=== PATIENT | male | born 1950 | race Caucasian/White ===

== ENCOUNTER 2018-07-22 20:52 | Inpatient (IN) | payer BC, MEDICARE ==
[~2018-07-22 20:52] MED LIST: ISOVUE-370 76%-LOCM 1 ML ONE
--- NOTE | 2018-07-22 21:12 | RAD ---
CHEST ONE VIEW: 07/22/18 HISTORY: Hypertension, altered mental status. COMPARISON: None. FINDINGS: Lungs are hypoinflated with vascular crowding. The cardiac silhouette and mediastinal contours appear within normal limits. No acute osseous abnormality. IMPRESSION: No acute intrathoracic abnormality. POS: [facility]
[2018-07-22 21:33] LABS: Hemoglobin 14.9 g/dL (14.0-18.0); Mean Corpuscular HGB CONC 33.4 g/dL (32.0-36.0); Mean Corpuscular Hemoglobin 32.3 pg (27.0-31.0); Mean Corpuscular Volume 96.7 fL (78.0-98.0); Platelet Count 193 thou/uL (130-400); RBC Distribution Width 12.1 % (11.5-14.5); Red Blood Cell (RBC) Count 4.62 mill/uL (4.70-6.10); White Blood Cell (WBC) Count 16.1 thou/uL (4.8-10.8)
[2018-07-22 21:39] LABS: Bilirubin Negative (Negative); Blood, Urine Trace (Negative); Clarity CLEAR (Clear); Glucose, Urine (Dipstick) Negative (Negative); Leukocyte Negative (Negative); Nitrite Negative (Negative); Protein, Urine (Dipstick) 30 mg/dL (Neg-Trace); Specific Gravity, Urine 1.019 (1.002-1.036)
[2018-07-22 21:40] LABS: Bacteria/HPF None Seen HPF (None Seen); Hyaline Casts/LPF 4-6 HYALINE CAST LPF (0-3 Hyaline); Pathc Cast-AUWi Flag 0.14 (0-2.49); Squamous Epithelial 0-3 HPF (0-3); WBC/HPF 0-3 HPF (0-3)
[2018-07-22 21:46] LABS: Band 5 % (5-11); Lymphocytes 2 % (21-51); MDiff Complete? YES; Neutrophil 93 % (42-75); Platelet Morphology Comment Appears Adequate; RBC Morphology Normal
--- NOTE | 2018-07-22 21:48 | CT ---
CT BRAIN WITHOUT CONTRAST 07/22/18 HISTORY: Altered mental status. COMPARISON: None. FINDINGS: There is extensive subarachnoid hemorrhage throughout the basilar cisterns centered around what appea rs to be a mass along the anterior communicating artery likely an aneurysm. There is intraventricula r hemorrhage, large volume, within the atria of the lateral ventricles as well as the foramen of Monr o. There is also some intraventricular hemorrhage of the fourth ventricle and third ventricle. Subara chnoid hemorrhage is seen throughout the basilar cisterns and surrounds both convexities. Calvarium is intact. IMPRESSION: 1. 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 2. Subtle hypodensity inferior left frontal lobe likely a EMERALD infarction. Code CR - Dr. Junior at 9:33 p.m. POS: [facility]
[2018-07-22 21:51] LABS: ALT (SGPT) 18 U/L (8-55); AST (SGOT) 23 U/L (5-34); Albumin 4.4 g/dL (3.4-4.8); Alkaline Phosphatase 72 U/L (40-150); Anion Gap 17 mmol/L (10-20); BUN (Urea Nitrogen) 14 mg/dL (8.4-25.7); Bilirubin, Total 0.9 mg/dL (0.2-1.2); CK (CPK) 200 U/L (30-200); Calc. Creatinine Clearance 0 mL/min (70-130); Calcium 9.7 mg/dL (7.8-10.44); Carbon Dioxide 22 mmol/L (23-31); Chloride 102 mmol/L (98-107); Estimated GFR-MDRD Greater than 90; Glucose 144 mg/dL (80-115); Potassium 3.9 mmol/L (3.5-5.1); Protein, Total 7.4 g/dL (5.8-8.1); Sodium 137 mmol/L (136-145)
[2018-07-22] MEDS ORDERED: niCARdipine 20MG In NaCl 20 MG/200 ML BAG ONE (22:03)
[2018-07-22] MEDS ORDERED: Rocuronium Bromide 10 MG/ML (10ML VIAL) ONE (22:12)
[2018-07-22] MEDS ORDERED: Ondansetron PF 4 MG/2 ML Vial IVP PRN (22:20)
--- NOTE | 2018-07-22 22:25 | CT ---
CT ANGIOGRAM OF THE HEAD CT ANGIOGRAM OF THE NECK 07/22/18 HISTORY: Ruptured intracranial aneurysm. COMPARISON: None. CORRELATION: Noncontrast head CT 07/22/18. TECHNIQUE: CT angiogram of the head and neck are performed in the axial plane. Three dimensional reformatted zuly ges are submitted for interpretation. FINDINGS: There is diffuse subarachnoid blood on the postcontrast head CT. Cortical tello-white matter different iation appears to be preserved. There is intraventricular hemorrhage. There is dilatation of the occi pital horn of both lateral ventricles, unchanged. There is also stable dilatation of both temporal ho rns. Bilateral orbits are unremarkable. Aerodigestive tract is patent. No mucosal abnormality. No obvious masses in the oral cavity. Limited evaluation due to dental amalgam artifact. Midline fatty raphae of the tongue is preserved. Symmetric attenuation of the parotid and submandibular glands. Symmetric attenuation of the sternocle idomastoid muscles. Unremarkable thyroid gland. No evidence of lymphadenopathy by size criteria. Cervical spine vertebral body height is maintained. There is no fracture. No high grade central canal stenosis. Varying foraminal narrowing due to degenerative change. Evaluation is limited by technique . Upper mediastinum and lung apices are unremarkable. CT ANGIOGRAM: Visualized aortic arch has appropriate enhancement and luminal diameter. RIGHT CAROTID: The right carotid origin, common carotid artery, carotid bifurcation, and internal carotid artery hav e appropriate enhancement and luminal diameter. No significant stenosis based upon NASCET criteria. LEFT CAROTID: The left carotid origin, common carotid artery, carotid bifurcation, and internal carotid artery have appropriate enhancement and luminal diameter. No significant stenosis based upon NASCET criteria. Bilateral cervical vertebral arteries appear to be patent. Right vertebral artery is dominant. Bilate ral subclavian arteries are unremarkable. CT ANGIOGRAM OF THE HEAD: Distal cervical and intracranial internal carotid arteries have appropriate enhancement and luminal d iameter. There is atherosclerosis in both cavernous and paraclinoid segments. ANTERIOR CIRCULATION: Symmetric enhancement and luminal diameter of the A1 and M1 segments. Proximal MCA branches and A2 se gments are unremarkable. There is a small focus of enhancement in the expected region of the anterior communicating artery measuring 1.6 x 2.4 cm. This lesion has a cephalad orientation just to the left of midline. A small aneurysm is suspected. Additional aneurysms in the anterior circulation are not definitively appreciated. Evaluation is limited by extensive subarachnoid hemorrhage. Posterior circulation demonstrates patent intracranial vertebral arteries. Limited evaluation of both PICA artery origins. There is mild narrowing of the proximal basilar artery. Remainder of the basila r artery is unremarkable. The right P1 segment is patent. The left C[employer] COUNSELLOR has a origin. IMPRESSION: 1. Small aneurysm at the level of the anterior communicating artery is suspected. 2. Diffuse subarachnoid and interventricular blood. 3. No evidence of significant stenosis based upon NASCET criteria. 4. Conventional angiography may be beneficial. Results of the study discussed with Nena Heredia NP, 02/19/19 at 10:03 p.m. Code CR POS: [facility]
[2018-07-22] MEDS ORDERED: Morphine 4 MG/ML VIAL SLOW IVP PRN (22:26)
[2018-07-22] MEDS ORDERED: Acetaminophen 1,000 MG in Premix Bag 1 BAG IVPB PRN (22:26)
[2018-07-22] MEDS ORDERED: Ventilator Sedation Protocol 1 EACH FS SCH (22:30)
[2018-07-22] MEDS ORDERED: Propofol 1,000 MG/100 ML VIAL IV ONE (22:30)
[2018-07-22] MEDS ORDERED: Aminocaproic Acid 5 GM in Sodium Chloride 0.9% 250 ML 250 ML IV SCH (22:30)
[2018-07-22] MEDS ORDERED: Lorazepam 2 MG/ML VIAL SLOW IVP PRN (22:43)
[2018-07-22] MEDS ORDERED: Morphine 2 MG/ML SYRINGE SLOW IVP PRN (22:43)
[2018-07-22] MEDS ORDERED: Propofol BOLUS 1,000 MG/100 ML VIAL IV PRN (22:43)
[2018-07-22] MEDS ORDERED: Fentanyl BOLUS 250 ML IVPB PRN (22:43)
[2018-07-22] MEDS ORDERED: DISCONTINUE PREVIOUS NARCOTIC PAIN MEDICATIONS AND BENZODIAZEPINES FS SCH (22:43)
--- NOTE | 2018-07-22 22:46 | RAD ---
CHEST ONE VIEW: 07/22/18 HISTORY: Intubation. COMPARISON: Radiograph same day. FINDINGS: Endotracheal tube tip is in good position to the level of the clavicles. Enteric tube tip is in the g astric body. Atelectatic changes. IMPRESSION: Satisfactory appearance of the endotracheal and enteric tubes. POS: [facility]
[2018-07-22] MEDS ORDERED: Fentanyl 100 MCG/2 ML VIAL ONE (23:02)
[2018-07-22 23:17] LABS: PTT 31.3 SEC (22.9-36.1); Prothrombin Time 13.7 SEC (12.0-14.7)
[2018-07-22 23:18] LABS: Actual Bicarbonate (HCO3a) 19.9 mEq/L (22-28); Analyzer IN Cardio ER; Base Excess (BEa) -2.2 mEq/L (-2.0 to +3.0); CO2 Tension 27.5 mmHg (35.0-45.0); Calcium, Ionized 1.14 mmol/L (1.12-1.30); Carboxyhemoglobin (COHb) 0.4 gm% (0.0-3.0); Hemoglobin (Hb) 14.2 g/dL (14.0-18.0); O2 Tension (PaO2) 290.8 mmHg (> 80.0); Potassium - ABG Lab 3.15 mmol/L (3.70-5.30); pH, Arterial 7.48 (7.35-7.45)
[2018-07-22] MEDS ORDERED: CEFAZOLIN 1 GM VIAL ONE (23:20)
[2018-07-22 23:21] LABS: ALV-art Gradient 387.825 (0-20); Puncture Site LBA
--- NOTE | 2018-07-23 00:15 | OP ---
DATE OF PROCEDURE: 07/22/2018 PREPROCEDURE DIAGNOSIS: Subarachnoid hemorrhage, hydrocephalus. PROCEDURE PERFORMED: Right external ventricular drain placement with solo hole. PROCEDURE IN DETAIL: Mackenzie's point was identified in the right frontal scalp. This was marked, prepped with ChloraPrep, and draped in sterile fashion. At this point, a 15 blade knife was used to incise the scalp down to the periosteum, making a roughly 1 cm incision. A cranial twist drill was then used to create a solo hole at Mackenzie's point in the right frontal bone. The dural wound was cleared using blunt dissection and then an interventricular catheter was placed at the depth of 6 cm. There was serosanguineous CSF return immediately. This was then hooked up to the buckle drain. The incision was closed using an Ethilon suture and the drain was also secured to the scalp using Ethilon suture. The drain was set to 15 cm of water. The patient tolerated the procedure well. We will initiate IV Ancef and repeat a.m. head CT. I discussed with the family post procedure. Job ID: [id number]
--- NOTE | 2018-07-23 01:02 | HP ---
HISTORY OF PRESENT ILLNESS: The patient is a 68-year-old male, with past medical history of GERD, otherwise healthy, who presented to the emergency department per EMS after he was found down at home. reports the patient is complaining he is not feeling well with a headache this morning. She reports that she had not heard from him throughout the day, so she sent a friend over to check on him around noon. At that time, friend reports the pt reported he was taking a bath- they spoke through a doorway. Friend left at that time because she thought all was well at the time. returned home later this evening around 7:30 p.m. and found the patient still in the bathtub with altered mental status. She contacted EMS who brought him to [facility] for further evaluation. CT head was done on arrival which was notable for diffuse subarachnoid hemorrhage and early development of hydrocephalus. CTA was also completed which showed a small ACom aneurysm. Blood pressure was significantly elevated on arrival, initially systolic in the 190s. The patient was started on a Cardene drip. His GCS on my exam and on arrival was 8, E2 V1 M5. Denson and Jensen grade IV. The patient had snoring respirations; therefore, I recommended intubation at that time. Dr. Argueta also reviewed the patient's imaging and recommended EVD placement. Platelet count was 193. Coags are pending. The patient reportedly takes 325 mg aspirin daily. PAST MEDICAL HISTORY: Notable for GERD. No other reported history per the . PAST SURGICAL HISTORY: The patient has no prior surgical history. SOCIAL HISTORY: The patient does not smoke. He drinks alcohol socially. No drug use. , lives at home. ALLERGIES: NO KNOWN DRUG ALLERGIES. REVIEW OF SYSTEMS: Unobtainable secondary to the patient's current condition. PHYSICAL EXAMINATION: VITAL SIGNS: Blood pressure 127/72 currently, pulse 106, respiration is 14. The patient is 98% on the ventilator and temperature is 99.1. CONSTITUTIONAL: GCS of 8, E2 V1 M5, Denson and Jensen grade IV. HEAD: Normocephalic and atraumatic. EYES: Pupils small, equal, sluggish. ENT: Oral mucosa is pink, intact, and moist. The patient is not making any verbal sounds. NECK: Trachea is midline. No apparent tenderness to palpation. RESPIRATORY: Symmetric chest expansion. Snoring respiration. CARDIOVASCULAR: Mildly tachycardic. MUSCULOSKELETAL: No obvious deformities. Symmetric pulses throughout. NEUROLOGIC: The patient is obtunded. He has a GCS of 8. He opens his eyes to pain. He is not making any verbal sounds. He does localize to pain. ASSESSMENT: Acute subarachnoid hemorrhage with anterior communicating artery aneurysm. PLAN: We will plan to admit the patient to the ICU with q.1 neuro checks. Head of the bed should be elevated to 30 degrees and the patient's BP should be kept under strict blood control with systolic blood pressure goal less than 140. I have started the patient on a Cardene drip. I have also started the patient on Amicar and Nimopod. Critical care and the hospitalist have been consulted for assistance with ventilator and medical management. We will repeat a.m. head CT. I have discussed this plan with Dr. Argueta, who is also in agreement. Once coags return, if normal, we will plan to also place EVD at the bedside. Job ID: [id number] MTDD
[2018-07-23] MEDS: Sodium Chloride 0.9% 1,000 ML IV SCH ×2 (01:31→11:59)
[2018-07-23] MEDS: Aminocaproic Acid 5 GM in Sodium Chloride 0.9% 250 ML 250 ML IV SCH ×5 (01:45→21:19)
[2018-07-23] MEDS: niCARdipine HCl 25 MG in Sodium Chloride 0.9% 250 ML 240 ML IVPB SCH ×4 (01:47→21:29)
[2018-07-23] MEDS: Propofol 1,000 MG/100 ML VIAL IV PRN ×3 (01:48→20:58)
[2018-07-23 01:59] VITALS: BMI 37.3
[2018-07-23] MEDS: niMODipine 30 MG CAP PO SCH ×6 (02:02→20:52)
[2018-07-23] MEDS: fentaNYL Citrate/PF 2,000 MCG in Sodium Chloride 0.9% 60 ML IV SCH (02:29)
[2018-07-23] MEDS: CEFAZOLIN 2 GM in Premix Bag 1 BAG IVPB SCH ×3 (06:13→20:52)
[2018-07-23] MEDS ORDERED: Insulin Regular 300 UNITS/3 ML VIAL SC PRN (07:35)
[2018-07-23] MEDS ORDERED: Dextrose 5% in Water 1,000 ML IV PRN (07:35)
[2018-07-23] MEDS ORDERED: CCU Electrolyte Replacement 1 EACH FS SCH (07:35)
[2018-07-23] MEDS ORDERED: Dextrose 50% Abboject 50 ML SYRINGE SLOW IVP PRN (07:35)
[2018-07-23] MEDS ORDERED: Potassium Chloride 40 MEQ in Premix Bag 1 BAG IVPB PRN (07:41)
[2018-07-23] MEDS ORDERED: Magnesium Oxide 400 MG TAB PO PRN ×2 (07:41)
[2018-07-23] MEDS ORDERED: Potassium Chloride 40 MEQ in Sodium Chloride 0.9% 250 ML 250 ML IVPB PRN (07:41)
[2018-07-23] MEDS ORDERED: Potassium Phosphate 9 MMOL in Sodium Chloride 0.9% 100 ML IVPB PRN (07:41)
[2018-07-23] MEDS ORDERED: Potassium Phosphate 12 MMOL in Sodium Chloride 0.9% 250 ML 250 ML IV PRN (07:41)
[2018-07-23] MEDS ORDERED: Potassium Phosphate 15 MMOL in Sodium Chloride 0.9% 250 ML 250 ML IV PRN (07:41)
[2018-07-23] MEDS ORDERED: Magnesium 2 GM/NS 0.9% 100 ML 2 GM in Premix Bag 1 BAG IVPB PRN (07:41)
[2018-07-23] MEDS ORDERED: Potassium Chloride 20 MEQ TAB PO PRN (07:41)
[2018-07-23] MEDS ORDERED: CCU ELECTROLYTE REPLACEMENT PROTOCOL FS PRN (07:41)
[2018-07-23 08:36] LABS: Actual Bicarbonate (HCO3a) 22.9 mEq/L (22-28); Base Excess (BEa) -1.1 mEq/L (-2.0 to +3.0); CO2 Tension 35.8 mmHg (35.0-45.0); Calcium, Ionized 1.16 mmol/L (1.12-1.30); Carboxyhemoglobin (COHb) 0.9 gm% (0.0-3.0); Hemoglobin (Hb) 12.6 g/dL (14.0-18.0); O2 Tension (PaO2) 105.1 mmHg (> 80.0); Potassium - ABG Lab 3.09 mmol/L (3.70-5.30); pH, Arterial 7.42 (7.35-7.45)
[2018-07-23 08:39] LABS: Puncture Site RBA
[2018-07-23] MEDS: Famotidine/PF 20 mg/2ml Vial SLOW IVP SCH ×2 (08:42→20:51)
[2018-07-23] MEDS ORDERED: Prevnar 13-Val Conj/PF 0.5 ML SYRINGE IM ONE (09:00)
--- NOTE | 2018-07-23 09:45 | CON ---
DATE OF CONSULTATION: 07/23/2018 CONSULTING PHYSICIAN: Neurosurgery Team. REASON FOR CONSULTATION: Ventilator management following encompasses 35 minutes critical care time. HISTORY OF PRESENT ILLNESS: This is a 68-year-old male, who presented to the emergency room last night with severe headache and altered mental status. CT demonstrated diffuse subarachnoid hemorrhage. He was intubated for airway protection after having a GCS of about 8. He has an EVD in place. PAST MEDICAL HISTORY: Gastroesophageal reflux. PAST SURGICAL HISTORY: None. SOCIAL HISTORY: Nonsmoker. Occasional alcohol consumption. No illicit drug use. . ALLERGIES: NONE. MEDICATIONS: Prior to admission none. REVIEW OF SYSTEMS: Not obtainable, because the patient is currently intubated in mechanical ventilation. PHYSICAL EXAMINATION: VITAL SIGNS: Temperature is 99.1, pulse 65, blood pressure 101/55, O2 saturation 99%. Intake since admission 966, output 590. HEENT: Pupils 2 mm, reactive. Sclerae anicteric. Oropharynx clear. NECK: No adenopathy. No JVD. CHEST: Clear to auscultation without wheezing or rhonchi. CARDIOVASCULAR: S1 and S2 regular without audible murmur. ABDOMEN: Soft, obese, nontender, and nondistended. EXTREMITIES: No clubbing, cyanosis, or edema. NEUROLOGICAL: I could get him to follow commands by squeezing hands and moving legs. Muscle strength is 5/5 throughout. A chest x-ray shows proper endotracheal tube placement. There may be a very small left pleural effusion. LABORATORY DATA: White blood cell count 16.1, hemoglobin 14.9, hematocrit 44.6, and platelet count 193. INR 1.0, PTT 31.3. PH 7.48, pCO2 of 27, PO2 of 290 that is on SIMV rate of 14, tidal volume of 500, PEEP 5, pressure support 10, FiO2 of 100%. Sodium 137, potassium 3.9, chloride 102, CO2 of 22, BUN 14, creatinine 0.6, and glucose 144. Lactate was 2.0, CK 200, troponin 0.013. Urinalysis showed trace blood, some ketones, and protein. ASSESSMENT: 1. Acute respiratory failure secondary to his altered mental status and need for airway protection. 2. Subarachnoid hemorrhage. 3. Hyperglycemia. PLAN: 1. Blood gas will be checked. 2. Start daily labs. 3. SCDs for DVT prophylaxis. 4. I have instructed the nurse to decrease nicardipine drip as his blood pressure probably should not be as low as it is running right now. 5. He is on Ancef for prophylaxis given the EVD placement. 6. He is tentatively scheduled for aneurysm coiling by Dr. Crockett. 7. He is on amlodipine for cerebral vasospasm. Job ID: [id number]
--- NOTE | 2018-07-23 11:22 | CON ---
DATE OF CONSULTATION: 07/23/2018 SUBJECTIVE: The patient is seen and examined. I agree with Marlen Mackey's evaluation on 07/22/2018. The patient is a 68-year-old man, in otherwise good health, who was found down yesterday after having complained of a headache earlier in the morning. On presentation, he was a GCS of 8, requiring intubation. Initial CT scan showed diffuse subarachnoid hemorrhage with prominence in the interhemispheric fissure and hydrocephalus. CT angiogram shows a small leftward projecting anterior communicating aneurysm. Ventriculostomy was placed. This morning, he opens his eyes and quite purposeful with his arms and legs with some following of commands. IMPRESSION AND PLAN: Subarachnoid hemorrhage due to ruptured anterior communicating aneurysm. We will treat with Amicar and nimodipine. Anticipate efforts at angiography and possible coiling tomorrow. I updated the patient's [id number] at family request with an anesthesiologist. Job ID: [id number]
--- NOTE | 2018-07-23 15:17 | CT ---
"PRELIMINARY REPORT/[facility]/EMERGENTY AFTER-HOURS PROCEDURE CT Head Without Contrast EXAM DATE/TIME: 07/23/2018 4:38 AM CLINICAL HISTORY: 68 years old, male; Condition or disease; Other: Sah; Prior surgery; Surgery date: Post-operative (0- 2 days); Patient HX: F/u sah TECHNIQUE: Axial computed tomography images of the head/brain without contrast. COMPARISON: CT Brain WO Con 07/22/2018 9:30 PM FINDINGS: Tubes, catheters and devices: A right frontal ventriculostomy catheter has been placed in the interva l. The tip extends into the right lateral ventricle. Brain: As before, there is extensive, diffuse subarachnoid hemorrhage, not significantly changed. Con tinued intraventricular blood, also similar to the prior exam. No definite new hemorrhage in the inte rval. No definite acute infarct by CT. Midline shift: No significant midline shift. Ventricles: Ventricle size appears upper range of normal, but has decreased in the interval. Bones/joints: No definite acute skull fracture. Sinuses: Included paranasal sinuses are essentially clear. Mastoid air cells: No significant acute finding. IMPRESSION: 1. Essentially stable appearing subarachnoid and intraventricular hemorrhage. 2. Ventriculostomy catheter placed in the interval, details above. 3. Ventricle size appears upper range of normal, but has decreased in the interval. 4. Other findings discussed above. Thank you for allowing us to participate in the care of your patient. Dictated and Authenticated by: Navid Singh MD AYERS, THOMAS | Preliminary Radiology Report CHECK EXAMINER (QA) DISCREPANCY? If there is a discrepancy between the preliminary and final interpretation, please notify [facility] via ht [email or web address]. If you do not have access to our QA portal, call our QA team at [phone] CONFIDENTIALITY STATEMENT This report is intended only for the use of the referring physician, and only in accordance with law, If you received this in error, call [phone] Page 2 of 2 07/23/2018 5:08 AM Central Time ([place] & [place]) FINAL REPORT NONCONTRAST HEAD CT: HISTORY: Subarachnoid hemorrhage. Followup. COMPARISON: 07/22/2018. FINDINGS: This report is in agreement with the preliminary report by [facility]. There is essentially stable subarach noid hemorrhage as well as intraventricular hemorrhage. The size of the ventricular system has sligh tly decreased. Interval placement of a ventriculoperitoneal shunt catheter with the distal tip in th e frontal horn of the right lateral ventricle. POS: [facility]"
--- NOTE | 2018-07-23 22:10 | PDOC.PN ---
- Subjective Encounter Start Date: 07/23/18 Encounter Start Time: 14:00 -: non-verbal Patient seen and examined for med mngt. On Mech Vent. - Objective MAR Reviewed: Yes Vital Signs & Weight: Vital Signs (12 hours) Temp Pulse Resp BP Pulse Ox 07/23/18 18:00 12 07/23/18 17:00 99.2 F 07/23/18 16:00 16 99 07/23/18 14:53 65 136/60 07/23/18 14:00 12 07/23/18 12:00 98.6 F 12 Weight Weight 238 lb Most Recent Monitor Data Heart Rate from ECG 77 NIBP 138/55 NIBP BP-Mean 82 Respiration from ECG 12 SpO2 95 I&O: 07/22/18 07/23/18 07/24/18 06:59 06:59 06:59 Intake Total 966 2111.6 Output Total 590 655 Balance 376 1456.6 Result Diagrams: 07/22/18 21:24 07/22/18 21:24 Additional Labs: Accuchecks 07/23/18 07/23/18 07/23/18 21:07 18:24 12:09 POC Glucose 120 H 127 H 127 H EKG Reviewed by me: Yes (Tele SR) Phys Exam - Physical Examination Constitutional: NAD Respiratory: no wheezing, no rhonchi Cardiovascular: RRR, no rub Gastrointestinal: soft, positive bowel sounds Musculoskeletal: no edema Dx/Plan - Plan DVT proph w/SCDs 1. Encephalopathy due to SAH/HTN emergency - on Cardene drip 2. Acute respiratory failure on Mech Vent 3. GERD 4. Obesity BMI 37.3 PLAN: Cont supportive care AM labs/ABGs On Cardene drip and Nimodipine Will follow. Thank you for this consultation. Full code. DPOA - to be verified Review of Systems - Review of Systems Other: ROS cannot be obtained due to current mentation. - Medications/Allergies Allergies/Adverse Reactions: Allergies Allergy/AdvReac Type Severity Reaction Status Date / Time No Known Drug Allergies Allergy Verified 07/23/18 01:54 Medications: Current Medications Dextrose/Water (Dextrose 50%) 25 gm SLOW IVP PRN PRN PRN Reason: Hypoglycemia Famotidine (Pepcid) 20 mg SLOW IVP Q12HR TICO Last Admin: 07/23/18 20:51 Dose: 20 mg Glucagon (Glucagon) 1 mg IM PRN PRN PRN Reason: Hypoglycemia Acetaminophen 1,000 mg/ Device 100 mls @ 400 mls/hr IVPB Q6H PRN PRN Reason: Fever/Mild Pain Stop: 07/23/18 22:27 Aminocaproic Acid 5 gm/ Sodium (Chloride) 270 mls @ 54 mls/hr IV INF TICO Last Admin: 07/23/18 21:19 Dose: 270 mls Sodium Chloride (Normal Saline 0.9%) 1,000 mls @ 75 mls/hr IV .[id number] TICO Last Admin: 07/23/18 11:59 Dose: 1,000 mls Cefazolin Sodium/Dextrose 2 gm (/ Device) 50 mls @ 100 mls/hr IVPB Q8HR TICO Last Admin: 07/23/18 20:52 Dose: 50 mls Nicardipine HCl 25 mg/ Sodium (Chloride) 250 mls @ 0 mls/hr IVPB INF TICO; Protocol Last Admin: 07/23/18 21:29 Dose: 250 mls Fentanyl Citrate 2,000 mcg/ (Sodium Chloride) 100 mls @ 0 mls/hr IV INF TICO; Protocol Stop: 08/21/18 22:43 Last Admin: 07/23/18 02:29 Dose: 100 mls Fentanyl Citrate (Fentanyl Bolus) 250 mls @ 0 mls/hr IVPB PRN PRN PRN Reason: Breakthrough pain/agitation Stop: 08/21/18 22:43 Dextrose/Water (D5w) 1,000 mls @ 0 mls/hr IV .Q0M PRN PRN Reason: Hypoglycemia Potassium Chloride 40 meq/ (Sodium Chloride) 270 mls @ 135 mls/hr IVPB ASDIR PRN PRN Reason: FOR SERUM K+ 2.5 - 3.5 Potassium Chloride 40 meq/ (Device) 100 mls @ 50 mls/hr IVPB ASDIR PRN PRN Reason: FOR SERUM K+ 2.5 - 3.5 Magnesium Sulfate 1 gm/ Sodium (Chloride) 102 mls @ 102 mls/hr IV PRN PRN PRN Reason: MAG LEVEL 1.4 - 2.0 Magnesium Sulfate 2 gm/ Device 100 mls @ 100 mls/hr IVPB ASDIR PRN PRN Reason: MAGNESIUM < 1.4 Potassium Phosphate 9 mmol/ (Sodium Chloride) 103 mls @ 25.75 mls/hr IVPB ASDIR PRN PRN Reason: Phosphate 1.0-1.8 Potassium Phosphate 12 mmol/ (Sodium Chloride) 254 mls @ 63.5 mls/hr IV ASDIR PRN PRN Reason: Serum phosphate 0.5-0.9 Potassium Phosphate 15 mmol/ (Sodium Chloride) 255 mls @ 63.75 mls/hr IV ASDIR PRN PRN Reason: Serum Phos < 0.5 Insulin Human Regular (Humulin R) 0 units SC .MILD SLIDING SCALE PRN PRN Reason: Mild Correctional Scale Lorazepam (Ativan) 2 mg SLOW IVP Q1H PRN PRN Reason: Breakthrough agitation Stop: 08/21/18 22:43 Magnesium Oxide (Magnesium Oxide) 400 mg PO BIDPRN PRN PRN Reason: FOR SERUM MAG 1.4 - 2.0 Magnesium Oxide (Magnesium Oxide) 800 mg PO PRN PRN PRN Reason: FOR SERUM MAG < 1.4 Miscellaneous Medication (Ventilator Sedation Protocol) 1 each FS ONE TICO Stop: 08/21/18 22:31 Miscellaneous Medication (Ccu Electrolyte Replacement) 1 each FS ASDIR TICO Miscellaneous Medication (Phos-Nak) 1 pkt PO TIDPRN PRN PRN Reason: FOR PHOS LEVEL 1.0 - 1.8 Miscellaneous Medication (Phos-Nak) 2 pkt PO TIDPRN PRN PRN Reason: FOR PHOS LEVEL 0.5 - 1.0 Morphine Sulfate (Morphine) 2 mg SLOW IVP Q4H PRN PRN Reason: Pain Morphine Sulfate (Morphine) 2 mg SLOW IVP Q1H PRN PRN Reason: BREAKTHROUGH PAIN/Agitation Stop: 08/21/18 22:43 Nimodipine (Nimodipine) 60 mg PO Q4HR TICO Last Admin: 07/23/18 20:52 Dose: 60 mg Discontinue Previous Narcotic Pain Medications And Benzodiazepines 1 each FS .ONE TICO Stop: 08/21/18 22:43 Ccu Electrolyte (Replacement Protocol) 0 each FS PRN PRN PRN Reason: FOR ELECTROLYTE REPLACEMENT Ondansetron HCl (Zofran) 4 mg IVP Q6H PRN PRN Reason: Nausea/Vomiting Pneumococcal 13-Valent Conj Vacc (Prevnar) 0.5 ml IM .ONCE ONE Stop: 07/26/18 09:16 Potassium Chloride (K-Dur) 40 meq PO ASDIR PRN PRN Reason: FOR SERUM K+ 2.5 - 3.5 Potassium Chloride (Klor-Con) 40 meq PER TUBE ASDIR PRN PRN Reason: FOR SERUM K+ 2.5-3.5 Propofol (Diprivan) 1,000 mg IV INF PRN; Protocol PRN Reason: TO ACHIEVE GOAL RASS Stop: 08/21/18 22:43 Last Admin: 07/23/18 20:58 Dose: 1,000 mg Propofol (Diprivan Bolus) 20 mg IV Q5MIN PRN PRN Reason: BREAKTHROUGH AGITATION Stop: 08/21/18 22:43 Sodium Chloride (Flush - Normal Saline) 10 ml IVF Q12HR TICO Last Admin: 07/23/18 20:52 Dose: 10 ml Sodium Chloride (Flush - Normal Saline) 10 ml IVF PRN PRN PRN Reason: Saline Flush
[2018-07-24] MEDS: niMODipine 30 MG CAP PO SCH ×3 (01:09→08:22)
[2018-07-24] MEDS: Aminocaproic Acid 5 GM in Sodium Chloride 0.9% 250 ML 250 ML IV SCH ×2 (02:30→08:19)
[2018-07-24] MEDS: niCARdipine HCl 25 MG in Sodium Chloride 0.9% 250 ML 240 ML IVPB SCH (02:58)
[2018-07-24] MEDS: Sodium Chloride 0.9% 1,000 ML IV SCH (02:59)
[2018-07-24] MEDS: CEFAZOLIN 2 GM in Premix Bag 1 BAG IVPB SCH (05:21)
[2018-07-24] MEDS: Propofol 1,000 MG/100 ML VIAL IV PRN ×2 (05:29→10:16)
[2018-07-24 06:25] VITALS: BP 149/63
--- NOTE | 2018-07-24 06:45 | RAD ---
CHEST ONE VIEW: INDICATIONS: Daily CCU examination. COMPARISON: 07/22/2018 FINDINGS: There is increasing air space opacity in the right lung base, which may be related to aspiration or p ossibly pneumonia. Recommend correlation and radiographic followup. The left lung is clear. ET tub e and gastric catheter are unchanged. No pneumothorax is evident. IMPRESSION: 1. Worsening air space opacity in the right lower lobe may reflect aspiration or pneumonia. Recomme nd correlation and radiographic followup. This is new from the comparison study dated 07/22/2018. 2. Endotracheal tube and gastric catheter are unchanged. POS: [facility]
[2018-07-24 06:46] LABS: Actual Bicarbonate (HCO3a) 21.2 mEq/L (22-28); Base Excess (BEa) -3.7 mEq/L (-2.0 to +3.0); CO2 Tension 37.8 mmHg (35.0-45.0); Calcium, Ionized 1.19 mmol/L (1.12-1.30); Carboxyhemoglobin (COHb) 1.3 gm% (0.0-3.0); Hemoglobin (Hb) 12.1 g/dL (14.0-18.0); Potassium - ABG Lab 3.25 mmol/L (3.70-5.30); pH, Arterial 7.37 (7.35-7.45)
[2018-07-24 06:52] LABS: Puncture Site LRA
[2018-07-24 07:05] LABS: #Monocytes 0.9 thou/uL (0.11-0.59); #Neutrophils 11.8 thou/uL (1.40-6.50); %Basophils 0.1 % (0.0-1.0); %Eosinophils 0.2 % (0.0-10.0); %Lymphocytes 6.9 % (21.0-51.0); %Monocytes 6.9 % (0.0-10.0); %Neutrophils 85.9 % (42.0-75.0); Hemoglobin 12.4 g/dL (14.0-18.0); Mean Corpuscular HGB CONC 33.9 g/dL (32.0-36.0); Mean Corpuscular Hemoglobin 33.7 pg (27.0-31.0); Mean Corpuscular Volume 99.2 fL (78.0-98.0); Mean Platelet Volume 8.5 fL (7.4-10.4); Platelet Count 142 thou/uL (130-400); RBC Distribution Width 12.2 % (11.5-14.5); White Blood Cell (WBC) Count 13.7 thou/uL (4.8-10.8)
[2018-07-24 07:27] LABS: Anion Gap 11 mmol/L (10-20); BUN (Urea Nitrogen) 13 mg/dL (8.4-25.7); Calc. Creatinine Clearance 157 mL/min (70-130); Calcium 8.6 mg/dL (7.8-10.44); Carbon Dioxide 20 mmol/L (23-31); Chloride 111 mmol/L (98-107); Estimated GFR-MDRD Greater than 90; Glucose 133 mg/dL (80-115); Magnesium 1.8 mg/dL (1.6-2.6); Potassium 3.4 mmol/L (3.5-5.1); Sodium 139 mmol/L (136-145)
[2018-07-24] MEDS ORDERED: Potassium Chloride 40 MEQ in Premix Bag 1 BAG IVPB SCH (07:30)
--- NOTE | 2018-07-24 07:47 | PRG ---
DATE OF SERVICE: 07/24/2018 TIME SPENT: 35 minutes of critical care time. SUBJECTIVE: The patient remains intubated on mechanical ventilation. He will wake up and follow commands for me. He is currently on a nicardipine drip for control of blood pressure. OBJECTIVE: VITAL SIGNS: His temperature is 98.4 with no fever overnight, pulse 77, blood pressure 144/58, O2 saturation 95% on mechanical ventilation. His intake for the last 24 hours was 4697 mL, output was 1658 mL. HEENT: Pupils are reactive, sclerae are anicteric. Oropharynx is clear. NECK: No adenopathy or JVD. CHEST: Clear to auscultation without wheezing or rhonchi. CARDIOVASCULAR: S1 and S2 regular, without audible murmur. ABDOMEN: Soft and nontender. EXTREMITIES: No edema. LABORATORY DATA: White blood cell count 13.7, hematocrit 36.7, and platelet count 142. PH 7.37, pCO2 of 37, pO2 of 63, that is on SIMV rate 12, tidal volume 500, PEEP 5, pressure support of 10, FiO2 30%. Chemistry result is either not back or was not done. IMAGING STUDIES: Chest x-ray shows no acute changes. Endotracheal tube in is good place. OG tube is appropriate. ASSESSMENT: 1. Subarachnoid hemorrhage from aneurysmal bleed. 2. Acute respiratory failure requiring mechanical ventilation. 3. Mild hypokalemia based on potassium on ABG this morning. PLAN: 1. Apparently, the catheterization lab is down and the patient may necessitate transfer to facility for aneurysmal coiling. 2. Continue nicardipine for blood pressure control. 3. Replace potassium. Job ID: [id number]
[2018-07-24 07:49] VITALS: TEMP 98.8
--- NOTE | 2018-07-24 07:58 | CON ---
DATE OF CONSULTATION: Mr. Crandall has had an uneventful night and is clinically unchanged. Opens his eyes briskly and follows commands. I was informed this morning approximately at 7:00 a.m. that the injector for the sawyer cork slabs was down and Dr. Crockett feels he cannot proceed safely with angiography. It is unclear when this will be repaired. I am recommending transfer for endovascular coiling given the technical inability to do so here. I attempted to reach Mrs. Crandall by telephone, but she was driving and so I asked her to take her time and come in for discussion and informed the nurse and application development director manager clinical applications regarding the need for transfer. We will proceed with this expeditiously. Job ID: [id number]
[2018-07-24] MEDS ORDERED: niCARdipine HCl 50 MG in Sodium Chloride 0.9% 250 ML 230 ML IVPB SCH (08:00)
[2018-07-24] MEDS: Famotidine/PF 20 mg/2ml Vial SLOW IVP SCH (08:22)
[2018-07-24] MEDS: fentaNYL Citrate/PF 2,000 MCG in Sodium Chloride 0.9% 60 ML IV SCH (09:10)
--- NOTE | 2018-07-25 10:48 | DIS ---
DATE OF ADMISSION: 07/23/2018 DATE OF DISCHARGE: 07/24/2018 The patient is a 68-year-old male who presented to the emergency department on 07/21/2018, after being found by his altered. CT head was notable for diffuse subarachnoid hemorrhage with prominence in the interhemispheric fissure and hydrocephalus. With [facility] upon my evaluation, the patient in the emergency department and required intubation. He also required placement of a right-sided ventriculostomy. 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 We admitted the patient to the ICU and we were treating him for blood pressure control as well as with Amicar and amlodipine. We would plan to coil with in the angio suite. However, due to technical difficulties, the suite was not available, and the patient required transfer to facility available for coiling. Dr. Argueta spoke to doctor to doctor with the accepting team. Job ID: [id number]
[2018-07-26] MEDS ORDERED: Prevnar 13-Val Conj/PF 0.5 ML SYRINGE IM ONE (09:15)
== END 2018-07-24 10:55 | disposition short-term general hospital (02) | DRG 23 ==
LOC: ERS 20:52 → CCU 07-23 00:19
PROVIDERS: ADMIT Neurological Surgery; ATTEND Neurological Surgery
PROC: 009630Z Drainage of Cerebral Ventricle with Drainage Device, Percutaneous Approach (ICD-10-PCS; principal; 2018-07-22)
PROC: 5A1935Z Respiratory Ventilation, Less than 24 Consecutive Hours (ICD-10-PCS; 2018-07-23)
PROC: 0BH17EZ Insertion of Endotracheal Airway into Trachea, Via Natural or Artificial Opening (ICD-10-PCS; 2018-07-23)
DX: I60.2 Nontraumatic subarachnoid hemorrhage from anterior communicating artery (principal); J96.00 Acute respiratory failure, unspecified whether with hypoxia or hypercapnia; G93.40 Encephalopathy, unspecified; I16.1 Hypertensive emergency; G91.9 Hydrocephalus, unspecified; K21.9 Gastro-esophageal reflux disease without esophagitis; R40.2433 Glasgow coma scale score 3-8, at hospital admission; R73.9 Hyperglycemia, unspecified; E66.9 Obesity, unspecified; E87.6 Hypokalemia; Z68.37 Body mass index [BMI] 37.0-37.9, adult
CPT/HCPCS: 31500; 36415; 36416; 51701; 70450; 70496; 70498; 71045; 80048; 80053; 81003; 81015; 82550; 82805; 83605; 83735; 84484; 85025; 85610; 85730; 87040; 87086; 93005; 94002; 94003; 96361; 96365; 96366; 96368; 96375; J0690; J2704; J3010; J3480; J7050; Q9966; S0017; S0028

== ENCOUNTER 2019-08-05 13:07 | Emergency (ER) | payer BC, SELFPAY ==
[2019-08-05 13:57] LABS: #Eosinphils 0.1 thou/uL (0.0-0.7); #Monocytes 0.5 thou/uL (0.11-0.59); #Neutrophils 4.9 thou/uL (1.40-6.50); %Eosinophils 1.6 % (0.0-10.0); %Lymphocytes 15.5 % (21.0-51.0); %Monocytes 7.2 % (0.0-10.0); %Neutrophils 75.7 % (42.0-75.0); Hemoglobin 14.7 g/dL (14.0-18.0); Mean Corpuscular HGB CONC 34.9 g/dL (32.0-36.0); Mean Corpuscular Hemoglobin 33.7 pg (27.0-31.0); Mean Corpuscular Volume 96.4 fL (78.0-98.0); Mean Platelet Volume 7.7 fL (7.4-10.4); Platelet Count 175 thou/uL (130-400); RBC Distribution Width 11.6 % (11.5-14.5); Red Blood Cell (RBC) Count 4.37 mill/uL (4.70-6.10); White Blood Cell (WBC) Count 6.5 thou/uL (4.8-10.8)
[2019-08-05 14:21] LABS: ALT (SGPT) 8 U/L (8-55); AST (SGOT) 11 U/L (5-34); Albumin 4.1 g/dL (3.4-4.8); Alkaline Phosphatase 86 U/L (40-110); Anion Gap 14 mmol/L (10-20); BUN (Urea Nitrogen) 17 mg/dL (8.4-25.7); Bilirubin, Total 0.5 mg/dL (0.2-1.2); Calc. Creatinine Clearance 0 mL/min (70-130); Calcium 9.1 mg/dL (7.8-10.44); Carbon Dioxide 24 mmol/L (23-31); Chloride 100 mmol/L (98-107); Estimated GFR-MDRD Greater than 90; Globulin 2.5 g/dL (2.4-3.5); Glucose 129 mg/dL (80-115); Potassium 4.5 mmol/L (3.5-5.1); Protein, Total 6.6 g/dL (5.8-8.1); Sodium 133 mmol/L (136-145)
[2019-08-05] MEDS ORDERED: Adacel (T-DAP) 0.5 ML SYRINGE ONE (15:41)
[2019-08-05] MEDS ORDERED: Diazepam 10 MG/2 ML SYRINGE ONE (16:29)
[2019-08-05] MEDS ORDERED: Midazolam HCl 2 mg/2 ml Vial ONE (16:33)
== END 2019-08-05 16:38 | disposition home or self-care (01) ==
LOC: ERS 13:07
DX: R56.9 Unspecified convulsions (principal); Z79.899 Other long term (current) drug therapy
CPT/HCPCS: 80053; 80177; 85025; 90715; 93005; J2250; J3360

== ENCOUNTER 2020-05-09 12:26 | Outpatient (CLI) | payer BC ==
--- NOTE | 2020-05-09 13:26 | CT ---
CT Brain WO Con: 05/09/2020 12:55 PM CLINICAL HISTORY: 62-year-old male with history of epilepsy with small seizure 1 week ago. History of aneurysm repair and ventricular peritoneal shunt catheter. IMAGING TECHNIQUE: Multiple CT images were obtained of the brain without IV contrast. COMPARISON: CT of the brain dated July 23, 2018 FINDINGS: BRAIN: Evidence of acute infarct: None. Evidence of chronic ischemic change:There is mild chronic small vessel white matter ischemic change. Evidence of intracranial hemorrhage: There is 5 mm thick, partially calcified linear hypodensity ove rlying the right frontal and temporal convexity which may reflect sequela of a chronic subdural hematoma or dural flap placed underlying the patient's right frontal temporal craniotomy. There is a vascular clip seen adjacent to the right carotid sinus. Evidence of brain volume loss:There is increased density within the periventricular white matter surr ounding the posterior horns of the lateral ventricles. The lateral ventricles appear more distended than on the prior exam. The anterior temporal horn on the left measures 1.2 cm, previously measured 9 .7 mm. Third ventricle measures 1 cm in size were previously measured 7 cm. There is a new left frontal ventriculoperitoneal catheter tip projecting in the region of the right thalamus. The cathete r tubing appears intact. There is some encephalomalacia surrounding the left ventricular peritoneal shunt catheter tract. There is also encephalomalacia involving the right frontal lobe related to the patient's prior ventricular drain. Evidence of midline shift: Third ventricle and septum pellucidum are midline. Ventricles: Normal. No hydrocephalus. SKULL: Intact. VISUALIZED PARANASAL SINUSES: Clear. MASTOID AIR CELLS: Clear. EXTRACRANIAL SOFT TISSUES: Normal. IMPRESSION: 1. [id number] hydrocephalus, new from the prior exam. Mild hypodensity surrounding the posteri or horns of the lateral ventricles may reflect transependymal flow of CSF. Follow-up MRI the brain with and without contrast may be helpful. 2. The ventriculoperitoneal shunt catheter tip projects into the right thalamus. The shunt catheter t ubing appears intact up to the level of the base of the skull. 3. 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
== END 2020-05-09 12:27 | disposition home or self-care (01) ==
LOC: CT 12:26
PROVIDERS: ATTEND Student in an Organized Health Care Education/Training Program
DX: G40.909 Epilepsy, unspecified, not intractable, without status epilepticus (principal); G91.9 Hydrocephalus, unspecified
CPT/HCPCS: 70450

== ENCOUNTER 2020-08-11 20:01 | Inpatient (IN) | payer BC ==
[2020-08-11] MEDS ORDERED: Midazolam HCl 5 mg/ml Vial ONE ×2 (20:05→21:30)
[2020-08-11] MEDS ORDERED: Rocuronium Bromide 10 MG/ML (10ML VIAL) ONE ×2 (20:06→20:07)
[2020-08-11] MEDS ORDERED: Succinylcholine 200 MG/10 ml SYRINGE FS ONE (20:08)
[2020-08-11] MEDS ORDERED: niCARdipine 20MG In NaCl 20 MG/200 ML BAG ONE (20:15)
[2020-08-11] MEDS ORDERED: Midazolam HCl 2 mg/2 ml Vial ONE (20:31)
[2020-08-11 20:38] LABS: Actual Bicarbonate (HCO3a) 22.6 mEq/L (22-28); Analyzer IN Cardio ER; Base Excess (BEa) -2.5 mEq/L (-2.0 to +3.0); CO2 Tension 40.3 mmHg (35.0-45.0); Calcium, Ionized (arterial) 1.14 mmol/L (1.12-1.30); Hemoglobin (Hb) 15.1 g/dL (14.0-18.0); O2 Tension (PaO2), arterial 306.7 mmHg (> 80.0); Potassium - ABG Lab 3.83 mmol/L (3.70-5.30); pH, Arterial 7.37 (7.35-7.45)
[2020-08-11 20:41] LABS: #Basophils 0.2 thou/uL (0.0-0.2); #Eosinphils 0.1 thou/uL (0.0-0.7); #Lymphocytes 1.4 thou/uL (1.20-3.40); #Monocytes 1.1 thou/uL (0.11-0.59); %Basophils 1.1 % (0.0-1.0); %Eosinophils 0.8 % (0.0-10.0); %Lymphocytes 8.9 % (21.0-51.0); %Monocytes 7.1 % (0.0-10.0); %Neutrophils 82.1 % (42.0-75.0); Hemoglobin 15.9 g/dL (14.0-18.0); Mean Corpuscular HGB CONC 35.4 g/dL (32.0-36.0); Mean Corpuscular Hemoglobin 33.2 pg (27.0-31.0); Mean Corpuscular Volume 93.7 fL (78.0-98.0); Mean Platelet Volume 8.6 fL (7.4-10.4); Platelet Count 232 thou/uL (130-400); RBC Distribution Width 12.2 % (11.5-14.5); Red Blood Cell (RBC) Count 4.81 mill/uL (4.70-6.10); White Blood Cell (WBC) Count 15.9 thou/uL (4.8-10.8)
[2020-08-11 20:43] LABS: ALV-art Gradient 355.925 mmHg (0-20); Puncture Site LBA
[2020-08-11] MEDS ORDERED: Fosphenytoin Sodium 2,000 MG in Sodium Chloride 0.9% 100 ML IVPB SCH (20:45)
[2020-08-11 20:49] LABS: Bilirubin Negative (Negative); Blood, Urine Negative (Negative); Clarity Clear (Clear); Glucose, Urine (Dipstick) Normal (Negative); Ketone, Urine Negative (Negative); Leukocyte Negative Leu/uL (Negative); Nitrite Negative (Negative); Protein, Urine (Dipstick) 20 mg/dL (Neg-Trace); Urobilinogen Normal mg/dL (Less than 2); pH, Urine 5.5 (5.0-9.0)
[2020-08-11 20:58] LABS: Amphetamine Not Detected (NotDetected); Barbiturates Screen Not Detected (NotDetected); Benzodiazepine Screen Not Detected (NotDetected); Cocaine Metabolite Screen Not Detected (NotDetected); Medtox Control Line Valid? VALID (VALID); Medtox Reader # READER 4; Methadone Not Detected (NotDetected); Methamphetamine Not Detected (NotDetected); Opiate Screen Not Detected (NotDetected); Oxycodone Screen Not Detected (NotDetected); Phencyclidine (PCP) Not Detected (NotDetected); THC/Cannabinoid Screen Not Detected (NotDetected); Tricyclic Screen Not Detected (NotDetected)
[2020-08-11 21:06] LABS: ALT (SGPT) 11 U/L (8-55); AST (SGOT) 9 U/L (5-34); Albumin 4.4 g/dL (3.4-4.8); Alkaline Phosphatase 112 U/L (40-110); Anion Gap 21 mmol/L (10-20); BUN (Urea Nitrogen) 23 mg/dL (8.4-25.7); Bilirubin, Total 0.7 mg/dL (0.2-1.2); CK (CPK) 35 U/L (30-200); Calc. Creatinine Clearance 0 mL/min (70-130); Calcium 9.4 mg/dL (7.8-10.44); Carbon Dioxide 19 mmol/L (23-31); Chloride 105 mmol/L (98-107); Globulin 3.2 g/dL (2.4-3.5); Glucose 144 mg/dL (80-115); Potassium 4.6 mmol/L (3.5-5.1); Protein, Total 7.6 g/dL (5.8-8.1); Sodium 140 mmol/L (136-145)
[2020-08-11] MEDS ORDERED: Fentanyl 100 MCG/2 ML VIAL ONE (21:30)
[2020-08-11] MEDS ORDERED: Fentanyl CADD 100 ML IV SCH (21:45)
[2020-08-11 22:11] LABS: SARS-CoV-2 NAA Rapid Test Not Detected (NotDetected)
[2020-08-11] MEDS ORDERED: Ventilator Sedation Protocol 1 EACH FS SCH (23:00)
[2020-08-11] MEDS ORDERED: Ondansetron PF 4 MG/2 ML Vial IVP PRN (23:03)
[2020-08-11] MEDS ORDERED: Fentanyl BOLUS 250 ML IVPB PRN (23:30)
[2020-08-11] MEDS ORDERED: Propofol 1,000 MG/100 ML VIAL IV PRN (23:30)
[2020-08-11] MEDS ORDERED: Propofol BOLUS 1,000 MG/100 ML VIAL IV PRN (23:30)
[2020-08-11] MEDS ORDERED: Morphine 2 MG/ML VIAL SLOW IVP PRN (23:30)
[2020-08-11] MEDS ORDERED: Lorazepam 2 MG/ML VIAL SLOW IVP PRN (23:30)
[2020-08-12 00:04] LABS: Lactic Acid 1.2 mmol/L (0.5-2.2)
[2020-08-12] MEDS: Lactated Ringer's 1,000 ML IV SCH ×3 (01:19→18:18)
[2020-08-12 03:40] LABS: #Lymphocytes 0.8 thou/uL (1.20-3.40); #Monocytes 0.5 thou/uL (0.11-0.59); #Neutrophils 10.3 thou/uL (1.40-6.50); %Basophils 0.1 % (0.0-1.0); %Eosinophils 0.1 % (0.0-10.0); %Lymphocytes 6.5 % (21.0-51.0); %Monocytes 4.7 % (0.0-10.0); %Neutrophils 88.6 % (42.0-75.0); Hemoglobin 13.4 g/dL (14.0-18.0); Mean Corpuscular HGB CONC 34.3 g/dL (32.0-36.0); Mean Corpuscular Hemoglobin 32.1 pg (27.0-31.0); Mean Corpuscular Volume 93.5 fL (78.0-98.0); Mean Platelet Volume 8.3 fL (7.4-10.4); Platelet Count 167 thou/uL (130-400); RBC Distribution Width 12.2 % (11.5-14.5); Red Blood Cell (RBC) Count 4.19 mill/uL (4.70-6.10); White Blood Cell (WBC) Count 11.6 thou/uL (4.8-10.8)
[2020-08-12 03:58] LABS: ALT (SGPT) 9 U/L (8-55); AST (SGOT) 10 U/L (5-34); Albumin 3.6 g/dL (3.4-4.8); Alkaline Phosphatase 91 U/L (40-110); Anion Gap 12 mmol/L (10-20); BUN (Urea Nitrogen) 19 mg/dL (8.4-25.7); Bilirubin, Total 0.8 mg/dL (0.2-1.2); Calc. Creatinine Clearance 196 mL/min (70-130); Calcium 8.7 mg/dL (7.8-10.44); Carbon Dioxide 25 mmol/L (23-31); Chloride 106 mmol/L (98-107); Globulin 2.8 g/dL (2.4-3.5); Glucose 140 mg/dL (80-115); Potassium 3.6 mmol/L (3.5-5.1); Protein, Total 6.4 g/dL (5.8-8.1); Sodium 139 mmol/L (136-145)
[2020-08-12] MEDS ORDERED: Fosphenytoin Sodium 200 MG in Sodium Chloride 0.9% 50 ML IVPB SCH ×2 (06:00→17:00)
[2020-08-12 07:13] LABS: Actual Bicarbonate (HCO3a) 25.4 mEq/L (22-28); Base Excess (BEa) 2.1 mEq/L (-2.0 to +3.0); CO2 Tension 35.4 mmHg (35.0-45.0); Calcium, Ionized (arterial) 1.15 mmol/L (1.12-1.30); Carboxyhemoglobin (COHb) 0.1 gm% (0.0-3.0); O2 Tension (PaO2), arterial 85.4 mmHg (> 80.0); Potassium - ABG Lab 3.36 mmol/L (3.70-5.30); pH, Arterial 7.47 (7.35-7.45)
[2020-08-12 07:14] LABS: Puncture Site LBA
[2020-08-12] MEDS ORDERED: Pantoprazole 40 MG VIAL IVP SCH (09:00)
[2020-08-12] MEDS ORDERED: Non-Formulary Item 1 EACH (Losartan Potassium [Losartan Potassium] 100 MG Tablet) PO SCH (09:00)
[2020-08-12] MEDS ORDERED: Enoxaparin Sodium 40 MG/0.4 ML SYRINGE SC SCH ×2 (09:00→21:00)
[2020-08-12] MEDS ORDERED: Losartan 25 MG TAB PER TUBE SCH (09:00)
[2020-08-12] MEDS ORDERED: Non-Formulary Item 1 EACH (Levetiracetam [Keppra] 250 MG Tab) PO SCH (09:00)
[2020-08-12] MEDS ORDERED: levETIRAcetam 500 mg/5 ml Oral Solution PER TUBE SCH (09:00)
[2020-08-12] MEDS ORDERED: Metoprolol Tartrate 25 MG TAB PO SCH (09:00)
[2020-08-12] MEDS: levETIRAcetam in NS 1,500 MG in Premix Bag 1 BAG IVPB SCH ×2 (09:09→21:30)
[2020-08-12] MEDS: Metoprolol Tartrate 25 MG TAB PER TUBE SCH ×2 (09:09→21:25)
[2020-08-12] MEDS ORDERED: levETIRAcetam in NS 1,500 MG in Premix Bag 1 BAG IVPB SCH ×2 (11:30→21:00)
[2020-08-12 11:38] VITALS: BMI 47.4
[2020-08-12] MEDS ORDERED: Albumin 25% 25 GM/100 ML BOT IVPB SCH (12:15)
[2020-08-12] MEDS ORDERED: Sodium Chloride 0.9% 100 ML ONE (12:39)
[2020-08-12] MEDS ORDERED: Pantoprazole 40 MG VIAL ONE (12:40)
[2020-08-12] MEDS ORDERED: Fentanyl CADD 100 ML ONE (16:46)
[2020-08-12] MEDS ORDERED: Labetalol HCl 100 MG/20 ML VIAL SLOW IVP PRN (17:02)
[2020-08-12] MEDS ORDERED: Lacosamide 400 MG in Sodium Chloride 0.9% 50 ML IVPB SCH (17:15)
[2020-08-12] MEDS ORDERED: levETIRAcetam in NS 1,000 MG in Premix Bag 1 BAG IVPB SCH (21:00)
[2020-08-13 00:37] VITALS: TEMP 99.2
[2020-08-13] MEDS ORDERED: Lacosamide 200 MG in Sodium Chloride 0.9% 50 ML IVPB SCH (06:00)
== END 2020-08-12 23:45 | disposition short-term general hospital (02) | DRG 100 ==
LOC: ERS 20:01 → CCU 20:10
PROVIDERS: ADMIT Family Medicine; ATTEND Family Medicine
PROC: 0BH18EZ Insertion of Endotracheal Airway into Trachea, Via Natural or Artificial Opening Endoscopic (ICD-10-PCS; principal; 2020-08-11)
PROC: 5A1935Z Respiratory Ventilation, Less than 24 Consecutive Hours (ICD-10-PCS; 2020-08-11)
DX: G40.901 Epilepsy, unspecified, not intractable, with status epilepticus (principal); J96.00 Acute respiratory failure, unspecified whether with hypoxia or hypercapnia; Z68.42 Body mass index [BMI] 45.0-49.9, adult; I10 Essential (primary) hypertension; I67.1 Cerebral aneurysm, nonruptured; E66.9 Obesity, unspecified; Z20.822 Contact with and (suspected) exposure to COVID-19
CPT/HCPCS: 36415; 36600; 70450; 71045; 75809; 80053; 80177; 80306; 81003; 82550; 82805; 83605; 83880; 84145; 84443; 84484; 85007; 85025; 85027; 85520; 87040; 87086; 93005; 94002; 94003; 94760; 95712; 95819; 95957; C9113; C9254; J1650; J1953; J2250; J2270; J3010; J3490; P9047; Q2009; U0002

== ENCOUNTER 2020-11-07 12:17 | Outpatient (CLI) | payer BC ==
[2020-11-08 12:50] LABS: SARS-CoV-2 PCR by NAA Not Detected (NotDetected)
== END 2020-11-07 12:18 | disposition home or self-care (01) ==
LOC: LABBT 12:17
PROVIDERS: ATTEND Internal Medicine Gastroenterology
DX: Z01.812 Encounter for preprocedural laboratory examination (principal); Z12.11 Encounter for screening for malignant neoplasm of colon; K21.9 Gastro-esophageal reflux disease without esophagitis; I63.9 Cerebral infarction, unspecified; Z20.822 Contact with and (suspected) exposure to COVID-19
CPT/HCPCS: U0003; U0005

== ENCOUNTER 2022-02-23 08:52 | Emergency (ER) | payer BC ==
[2022-02-23 10:06] LABS: #Basophils 0.1 thou/uL (0.0-0.2); #Eosinphils 0.1 thou/uL (0.0-0.7); #Lymphocytes 0.8 thou/uL (1.20-3.40); #Monocytes 0.6 thou/uL (0.11-0.59); #Neutrophils 8.3 thou/uL (1.40-6.50); %Basophils 0.7 % (0.0-1.0); %Eosinophils 1.2 % (0.0-10.0); %Lymphocytes 7.7 % (21.0-51.0); %Monocytes 6.1 % (0.0-10.0); %Neutrophils 84.4 % (42.0-75.0); Hemoglobin 14.5 g/dL (14.0-18.0); Mean Corpuscular HGB CONC 33.6 g/dL (32.0-36.0); Mean Corpuscular Hemoglobin 33.4 pg (27.0-31.0); Mean Corpuscular Volume 99.4 fL (78.0-98.0); Mean Platelet Volume 7.2 fL (7.4-10.4); Platelet Count 235 thou/uL (130-400); RBC Distribution Width 12.9 % (11.5-14.5); Red Blood Cell (RBC) Count 4.32 mill/uL (4.70-6.10); White Blood Cell (WBC) Count 9.9 thou/uL (4.8-10.8)
[2022-02-23] MEDS ORDERED: Metoprolol Tartrate 50 MG TAB ONE (10:13)
[2022-02-23] MEDS ORDERED: Metoprolol Tartrate 25 MG TAB ONE (10:13)
[2022-02-23 10:29] LABS: ALT (SGPT) 14 U/L (8-55); AST (SGOT) 15 U/L (5-34); Albumin 3.7 g/dL (3.4-4.8); Alkaline Phosphatase 86 U/L (40-110); Anion Gap 14 mmol/L (10-20); BUN (Urea Nitrogen) 17 mg/dL (8.4-25.7); Bilirubin, Total 0.6 mg/dL (0.2-1.2); Calc. Creatinine Clearance 0 mL/min (70-130); Carbon Dioxide 23 mmol/L (23-31); Chloride 102 mmol/L (98-107); Estimated GFR 100; Glucose 120 mg/dL (80-115); Potassium 3.7 mmol/L (3.5-5.1); Protein, Total 6.7 g/dL (5.8-8.1); Sodium 135 mmol/L (136-145)
[2022-02-23] MEDS ORDERED: Losartan 25 MG TAB PO SCH (10:30)
== END 2022-02-23 12:38 | disposition home or self-care (01) ==
LOC: ERS 08:52
DX: I82.432 Acute embolism and thrombosis of left popliteal vein (principal); I10 Essential (primary) hypertension; Z79.899 Other long term (current) drug therapy
CPT/HCPCS: 36415; 80053; 85025; 85379; 93970

== ENCOUNTER 2022-07-31 11:58 | Inpatient (IN) | payer BC, MEDICARE ==
[2022-07-31] MEDS ORDERED: Sodium Bicarb 50 MEQ/50 ML Abboject 8.4% SYRINGE ONE (12:40)
[2022-07-31] MEDS ORDERED: EPINEPHrine 1 MG/10 ML Abboject SYRINGE ONE (12:40)
[2022-07-31] MEDS ORDERED: NOREPINEPHRINE 8 MG/250 ML-D5W 250 ML ONE (12:43)
[2022-07-31] MEDS ORDERED: metroNIDAZOLE 500 MG/100 ML BAG ONE (12:49)
[2022-07-31 13:26] LABS: Hemoglobin 9.5 g/dL (14.0-18.0); Mean Corpuscular HGB CONC 32.7 g/dL (32.0-36.0); Mean Corpuscular Hemoglobin 31.8 pg (27.0-31.0); Mean Corpuscular Volume 97.3 fl (78.0-98.0); Mean Platelet Volume 10.1 fL (7.4-10.4); Platelet Count 101 10x3/uL (130-400); RBC Distribution Width 13.4 % (11.5-14.5); Red Blood Cell (RBC) Count 2.99 mill/uL (4.70-6.10); White Blood Cell (WBC) Count 23.2 10x3/uL (4.8-10.8)
[2022-07-31 13:28] LABS: Base Excess -11.9 mEq/L (-2.0 to +3.0); Calcium, Ionized (venous) 0.89 mmol/L (1.16-1.32); Chloride (VBG) 110 mmol/L (98-106); Hemoglobin (Hb) 10.8 g/dL (12.6-17.4); Potassium (VBG) 4.41 mmol/L (3.70-5.30); Sodium 139.6 mmol/L (133-146); pH (venous) 7.28 (7.32-7.43)
[2022-07-31 13:31] LABS: Actual Bicarbonate (HCO3v) 13 mEq/L (22-28)
[2022-07-31 13:37] LABS: INR-International Normal Ratio 1.8; PTT 32.1 sec (22.9-36.1); Prothrombin Time 21.9 sec (12.0-14.7)
[2022-07-31 13:40] LABS: Band 22 % (5-11); Lymphocytes 1 % (21-51); MDiff Complete? YES; Monocytes 3 % (0-10); Neutrophil 74 % (42-75); Ovalocytes SLIGHT = 2-5 cells (100X) (0-1/hpf); Platelet Morphology Comment Appears Decreased; Polychromasia SLIGHT = 2-3 cells (100X) (0-2/hpf); Toxic Granulation SLIGHT; Vacuoles SLIGHT
[2022-07-31 13:47] LABS: ALT (SGPT) 23 U/L (8-55); AST (SGOT) 45 U/L (5-34); Albumin 1.8 g/dL (3.4-4.8); Alkaline Phosphatase 113 U/L (40-110); Anion Gap 27 mmol/L (10-20); Calc. Creatinine Clearance 0 mL/min (70-130); Calcium 7.1 mg/dL (7.8-10.44); Carbon Dioxide 10 mmol/L (23-31); Chloride 112 mmol/L (98-107); Estimated GFR 8; Globulin 2.6 g/dL (2.4-3.5); Glucose 157 mg/dL (80-115); Lipase 7 U/L (8-78); Potassium 4.5 mmol/L (3.5-5.1); Protein, Total 4.4 g/dL (5.8-8.1); Sodium 144 mmol/L (136-145)
[2022-07-31 13:53] LABS: Acetaminophen Less than 10.0 mcg/mL (10.0-30.0); Alcohol Less than 10 mg/dL (Less than 10); CK (CPK) 1033 U/L (30-200); CRP (Inflammatory) 25.05 mg/dL (= or < 0.5); Magnesium 2.2 mg/dL (1.6-2.6); Salicylate Less than 8.0 mg/dL (15.0-30.0)
[2022-07-31] MEDS ORDERED: Cefepime 2 GM VIAL ONE (14:13)
[2022-07-31 14:21] LABS: Bilirubin Negative (Negative); Blood, Urine Trace (Negative); Clarity Turbid (Clear); Glucose, Urine (Dipstick) Normal (Negative); Ketone, Urine Negative (Negative); Leukocyte Negative Leu/uL (Negative); Nitrite Negative (Negative); Protein, Urine (Dipstick) 50 mg/dL (Neg-Trace); Specific Gravity, Urine 1.025 (1.002-1.036); Urobilinogen Normal mg/dL (Less than 2); WBC/HPF 0-3 HPF (0-3)
[2022-07-31 14:23] LABS: CKMB 5.3 ng/mL (0-6.6)
[2022-07-31 14:26] LABS: Amphetamine Not Detected (NotDetected); Barbiturates Screen Not Detected (NotDetected); Benzodiazepine Screen Not Detected (NotDetected); Cocaine Metabolite Screen Not Detected (NotDetected); Methadone Not Detected (NotDetected); Methamphetamine Not Detected (NotDetected); Opiate Screen Not Detected (NotDetected); Oxycodone Screen Not Detected (NotDetected); Phencyclidine (PCP) Not Detected (NotDetected); THC/Cannabinoid Screen Not Detected (NotDetected); Tricyclic Screen Not Detected (NotDetected)
[2022-07-31 14:27] LABS: Bacteria/HPF 1+ HPF (None Seen)
[2022-07-31 14:29] LABS: BUN (Urea Nitrogen) 129 mg/dL (8.4-25.7)
[2022-07-31] MEDS ORDERED: Vasopressin 20 UNIT, Admixture Fee 1 EACH in Sodium Chloride 0.9% 50 ML IV SCH (14:30)
[2022-07-31] MEDS ORDERED: levETIRAcetam 500 MG/5 ML VIAL ONE ×2 (14:48→14:49)
[2022-07-31] MEDS ORDERED: LORazepam 2 MG/ML SYR.(CARPUJECT) ONE (14:48)
[2022-07-31] MEDS ORDERED: Ketamine 50 MG/ML (10ML VIAL) ONE (14:53)
[2022-07-31] MEDS ORDERED: Vancomycin 1 GM/200 ML (FROZEN) BAG ONE (15:11)
[2022-07-31] MEDS ORDERED: Dicyclomine 20 MG TAB ONE (15:14)
[2022-07-31] MEDS ORDERED: Hydrocortisone Sod Succ/PF 100 mg/2 ml Vial ONE (15:14)
[2022-07-31] MEDS ORDERED: Sodium Bicarb 50 MEQ/50 ML VIAL ONE (15:14)
[2022-07-31] MEDS ORDERED: Electrolyte Replacement Protocol 1 EACH IVPB ONE (15:18)
[2022-07-31 15:29] LABS: SARS-CoV-2 NAA Rapid Test Not Detected (NotDetected)
[2022-07-31] MEDS ORDERED: Ventilator Sedation Protocol 1 EACH FS SCH (15:30)
[2022-07-31 15:38] LABS: Analyzer IN Cardio ER; Base Excess (BEa) -12.6 mEq/L (-2.0 to +3.0); Calcium, Ionized (arterial) 0.98 mmol/L (1.12-1.30); Carboxyhemoglobin (COHb) 0.3 gm% (0.0-3.0); Hemoglobin (Hb) 11.1 g/dL (14.0-18.0); O2 Tension (PaO2), arterial 340.7 mmHg (> 70.0); pH, Arterial 7.36 (7.35-7.45)
[2022-07-31 15:39] LABS: Actual Bicarbonate (HCO3a) 10.9 mEq/L (22-28); CO2 Tension 19.8 mmHg (35.0-45.0); Puncture Site LFA
[2022-07-31] MEDS ORDERED: Fentanyl BOLUS 250 ML IVPB PRN (17:15)
[2022-07-31] MEDS ORDERED: Fentanyl CADD 100 ML IV SCH (17:15)
[2022-07-31] MEDS ORDERED: Lorazepam 2 MG/ML VIAL SLOW IVP PRN (17:15)
[2022-07-31] MEDS ORDERED: Propofol BOLUS 1,000 MG/100 ML VIAL IV PRN (17:15)
[2022-07-31] MEDS ORDERED: DISCONTINUE PREVIOUS NARCOTIC PAIN MEDICATIONS AND BENZODIAZEPINES FS SCH (17:15)
[2022-07-31] MEDS ORDERED: Propofol 1,000 MG/100 ML VIAL IV PRN (17:15)
[2022-07-31] MEDS: Morphine 2 MG/ML VIAL SLOW IVP PRN ×2 (17:44→20:28)
[2022-07-31] MEDS: NOREPINEPHRINE 8 MG/250 ML-D5W 250 ML IVPB PRN ×2 (17:45→22:10)
[2022-07-31] MEDS ORDERED: Insulin Regular 300 UNITS/3 ML VIAL SC PRN (18:09)
[2022-07-31 18:10] LABS: Lactic Acid 8.1 mmol/L (0.5-2.2)
[2022-07-31] MEDS ORDERED: Lactated Ringer's 500 ML IV SCH (18:30)
[2022-07-31] MEDS: Vancomycin 1 GM in Premix Bag 1 BAG IVPB SCH ×2 (18:36→18:48)
[2022-07-31] MEDS ORDERED: Vancomycin Dose by Levels Sliding Scale (Wt > 99) FS SCH (18:45)
[2022-07-31] MEDS: Lactated Ringer's 1,000 ML IV SCH (18:48)
[2022-07-31 19:43] LABS: Troponin I 0.114 ng/mL (< 0.028)
[2022-07-31] MEDS: metroNIDAZOLE 500 MG in Premix Bag 1 BAG IVPB SCH (20:41)
[2022-07-31] MEDS: Heparin 5,000 UNITS/ML VIAL SC SCH (20:42)
[2022-07-31] MEDS ORDERED: Vancomycin 1 GM in Premix Bag 1 BAG IVPB SCH (21:00)
[2022-07-31] MEDS ORDERED: Pantoprazole 40 MG VIAL IVP SCH (21:00)
[2022-07-31 21:15] VITALS: BMI 36.2
[2022-07-31 22:23] LABS: Troponin I 0.152 ng/mL (< 0.028)
[2022-08-01 00:43] LABS: Lactic Acid 8.2 mmol/L (0.5-2.2)
[2022-08-01 01:24] LABS: ALT (SGPT) 39 U/L (8-55); AST (SGOT) 100 U/L (5-34); Albumin 2.1 g/dL (3.4-4.8); Alkaline Phosphatase 146 U/L (40-110); Anion Gap 28 mmol/L (10-20); Bilirubin, Total 1.2 mg/dL (0.2-1.2); Calc. Creatinine Clearance 18 mL/min (70-130); Calcium 7.9 mg/dL (7.8-10.44); Carbon Dioxide 11 mmol/L (23-31); Chloride 106 mmol/L (98-107); Estimated GFR 10; Globulin 3.1 g/dL (2.4-3.5); Glucose 318 mg/dL (80-115); Potassium 5.2 mmol/L (3.5-5.1); Protein, Total 5.2 g/dL (5.8-8.1); Sodium 140 mmol/L (136-145)
[2022-08-01 01:37] LABS: BUN (Urea Nitrogen) 145 mg/dL (8.4-25.7)
[2022-08-01] MEDS: NOREPINEPHRINE 8 MG/250 ML-D5W 250 ML IVPB PRN ×3 (03:21→15:11)
[2022-08-01 04:40] LABS: #Eosinphils 0.7 thou/uL (0.0-0.7); #Lymphocytes 1.5 thou/uL (1.20-3.40); #Monocytes 0.6 thou/uL (0.11-0.59); #Neutrophils 9.4 thou/uL (1.40-6.50); %Basophils 0.2 % (0.0-1.0); %Eosinophils 6.1 % (0.0-10.0); %Lymphocytes 11.9 % (21.0-51.0); %Monocytes 4.8 % (0.0-10.0); %Neutrophils 76.9 % (42.0-75.0); Hemoglobin 8.3 g/dL (14.0-18.0); Mean Corpuscular HGB CONC 31.4 g/dL (32.0-36.0); Mean Corpuscular Hemoglobin 28.3 pg (27.0-31.0); Mean Corpuscular Volume 90.1 fl (78.0-98.0); Mean Platelet Volume 10.3 fL (7.4-10.4); Platelet Count 150 10x3/uL (130-400); RBC Distribution Width 16.2 % (11.5-14.5); Red Blood Cell (RBC) Count 2.93 mill/uL (4.70-6.10); White Blood Cell (WBC) Count 12.2 10x3/uL (4.8-10.8)
[2022-08-01] MEDS: metroNIDAZOLE 500 MG in Premix Bag 1 BAG IVPB SCH ×2 (05:14→15:13)
[2022-08-01] MEDS ORDERED: Heparin 10,000 UNITS/ 10 ML VIAL ONE (08:42)
[2022-08-01 08:45] LABS: Base Excess -27.1 mEq/L (-2.0 to +3.0); Calcium, Ionized (venous) 1.08 mmol/L (1.16-1.32); Chloride (VBG) 103 mmol/L (98-106); Hemoglobin (Hb) 10.7 g/dL (12.6-17.4); Sodium 135.7 mmol/L (133-146)
[2022-08-01] MEDS ORDERED: Sodium Bicarb 50 MEQ/50 ML VIAL ONE ×2 (08:50→19:40)
[2022-08-01] MEDS ORDERED: Lactated Ringer's 1,000 ML IV SCH ×2 (09:00→09:50)
[2022-08-01] MEDS: Lactated Ringer's 1,000 ML IV SCH (09:41)
[2022-08-01] MEDS ORDERED: Albumin 5% 500 ML ONE (09:42)
[2022-08-01 09:51] LABS: Base Excess (BEa) -19.2 mEq/L (-2.0 to +3.0); Calcium, Ionized (arterial) 0.94 mmol/L (1.12-1.30); Carboxyhemoglobin (COHb) 0.5 gm% (0.0-3.0); O2 Tension (PaO2), arterial 181.7 mmHg (> 70.0)
[2022-08-01 09:55] LABS: ALV-art Gradient 150.675 mmHg (0-20); Puncture Site Arterial Line
[2022-08-01] MEDS: Hydrocortisone Sod Succ/PF 100 mg/2 ml Vial IVP SCH ×2 (10:27→16:09)
[2022-08-01] MEDS: Heparin 5,000 UNITS/ML VIAL SC SCH (10:28)
[2022-08-01 10:53] LABS: Albumin 3.2 g/dL (3.4-4.8); Calcium 8.6 mg/dL (7.8-10.44); Chloride 105 mmol/L (98-107); Globulin 2.3 g/dL (2.4-3.5); Glucose 285 mg/dL (80-115); Sodium 146 mmol/L (136-145)
[2022-08-01 10:54] LABS: ALT (SGPT) 35 U/L (8-55); AST (SGOT) 29 U/L (5-34); Alkaline Phosphatase 85 U/L (40-110); Anion Gap 20 mmol/L (10-20); BUN (Urea Nitrogen) 106 mg/dL (8.4-25.7); Bilirubin, Total 0.6 mg/dL (0.2-1.2); Carbon Dioxide 25 mmol/L (23-31); Protein, Total 5.5 g/dL (5.8-8.1)
[2022-08-01] MEDS ORDERED: Calcium Gluc 4.6 MEQ/10 ML (100 MG/ML) SLOW IVP ONE (10:58)
[2022-08-01] MEDS ORDERED: Insulin Regular 300 UNITS/3 ML VIAL IVP SCH (11:02)
[2022-08-01] MEDS ORDERED: Dextrose 50% Abboject 50 ML SYRINGE SLOW IVP SCH (11:04)
[2022-08-01] MEDS ORDERED: CALCIUM GLUC 1 GM/NS 50 ML 1 GM in Premix Bag 1 BAG IVPB SCH ×2 (11:15→17:45)
[2022-08-01 11:23] LABS: Magnesium 2.8 mg/dL (1.6-2.6)
[2022-08-01 11:39] LABS: Lactic Acid 21.4 mmol/L (0.5-2.2)
[2022-08-01 11:40] LABS: Phosphorus 12.7 mg/dL (2.3-4.7); Troponin I 0.305 ng/mL (< 0.028)
[2022-08-01 12:03] LABS: Calc. Creatinine Clearance 19 mL/min (70-130)
[2022-08-01 12:04] LABS: Estimated GFR 10
[2022-08-01] MEDS ORDERED: Cefepime 1 GM in Sodium Chloride 0.9% 100 ML IVPB SCH (14:00)
[2022-08-01 14:34] VITALS: BP 133/77
[2022-08-01 15:26] LABS: BUN (Urea Nitrogen) 122 mg/dL (8.4-25.7)
[2022-08-01 15:29] LABS: HBSAB Concentration Less than 8.00 mIU/mL; Hep B Core Total Ab Non-Reactive (NonReactive); Hep B Core Total Index 0.19 S/CO (0-0.79); Hep B Surf AB Non-Reactive (NonReactive); Hep C IgG Ab Non-Reactive (NonReactive); Hep C Index 0.06 S/CO (0-0.79)
[2022-08-01] MEDS ORDERED: Albumin 25% 25 GM/100 ML BOT IVPB SCH (15:30)
[2022-08-01 16:08] LABS: Calcium, Ionized (arterial) 0.99 mmol/L (1.12-1.30); Carboxyhemoglobin (COHb) 1.1 gm% (0.0-3.0); Hemoglobin (Hb) 7.1 g/dL (14.0-18.0); O2 Tension (PaO2), arterial 410.2 mmHg (> 70.0)
[2022-08-01 16:13] LABS: Puncture Site Arterial Line
[2022-08-01 16:40] LABS: Hep B Surf Ag Non-Reactive S/CO (NonReactive)
[2022-08-01 16:41] LABS: HBSAg Index 0.26 S/CO (0-0.99)
[2022-08-01 16:57] LABS: Calcium 7.4 mg/dL (7.8-10.44); Chloride 103 mmol/L (98-107); Glucose 106 mg/dL (80-115); Sodium 140 mmol/L (136-145)
[2022-08-01] MEDS ORDERED: Sodium Chloride 0.9% 500 ML IV SCH (17:00)
[2022-08-01] MEDS ORDERED: Phenylephrine 40 MG in Sodium Chloride 0.9% 250 ML 250 ML IVPB SCH (17:00)
[2022-08-01 17:03] LABS: Calc. Creatinine Clearance 23 mL/min (70-130); Carbon Dioxide Less than 8 mmol/L (23-31); Estimated GFR 13; Potassium 6.8 mmol/L (3.5-5.1)
[2022-08-01] MEDS ORDERED: Phenylephrine 40 MG/NS 250 ML 250 ML IVPB SCH (17:30)
[2022-08-01] MEDS ORDERED: Calcium Gluconate 4.6 MEQ in Sodium Chloride 0.9% 100 ML IVPB SCH (17:35)
[2022-08-01 19:01] LABS: Vancomycin, Random 16.2 ug/mL (See Comment)
[2022-08-01] MEDS ORDERED: Calcium Chloride 1 GM/10 ML Abboject SYRINGE IVP SCH (19:45)
[2022-08-01] MEDS ORDERED: Sodium Bicarb 50 MEQ/50 ML VIAL IVP SCH (19:45)
[2022-08-01] MEDS ORDERED: VANCOMYCIN 750 MG/250 ML BAG 750 MG in Sodium Chloride 0.9% 250 ML 250 ML IVPB SCH (20:00)
[2022-08-01] MEDS ORDERED: Sodium Bicarbonate 150 MEQ in Dextrose 5% in Water 1,000 ML IV SCH (20:00)
[2022-08-02 02:46] VITALS: TEMP 97.8
[2022-08-02 16:22] LABS: CO2 Tension 19.3 mmHg (35.0-45.0); pH, Arterial 7.19 (7.35-7.45)
[2022-08-02 16:23] LABS: Actual Bicarbonate (HCO3a) 7.2 mEq/L (22-28); Potassium - ABG Lab 6.58 mmol/L (3.70-5.30)
[2022-08-02 16:25] LABS: pH (venous) 6.86 (7.32-7.43)
[2022-08-02 16:26] LABS: Actual Bicarbonate (HCO3v) 5 mEq/L (22-28); Potassium (VBG) 7.86 mmol/L (3.70-5.30)
[2022-08-02 16:27] LABS: Actual Bicarbonate (HCO3a) 7.2 mEq/L (22-28); CO2 Tension 18.8 mmHg (35.0-45.0)
[2022-08-03] MEDS ORDERED: FLU VACC QS2022-23(65YR UP)/PF 240 MCG/0.7 ML SYRINGE IM ONE (09:00)
== END 2022-08-01 21:07 | disposition expired | DRG 871 ==
LOC: ERS 11:58 → CCU 16:01
PROVIDERS: ADMIT Family Medicine; ATTEND Family Medicine
PROC: 5A1945Z Respiratory Ventilation, 24-96 Consecutive Hours (ICD-10-PCS; principal; 2022-07-31)
PROC: 0BH17EZ Insertion of Endotracheal Airway into Trachea, Via Natural or Artificial Opening (ICD-10-PCS; 2022-07-31)
PROC: 4A133R1 Monitoring of Arterial Saturation, Peripheral, Percutaneous Approach (ICD-10-PCS; 2022-08-01)
PROC: 02HV33Z Insertion of Infusion Device into Superior Vena Cava, Percutaneous Approach (ICD-10-PCS; 2022-08-01)
PROC: B548ZZA Ultrasonography of Superior Vena Cava, Guidance (ICD-10-PCS; 2022-08-01)
PROC: 0D9670Z Drainage of Stomach with Drainage Device, Via Natural or Artificial Opening (ICD-10-PCS; 2022-08-01)
PROC: 3E043XZ Introduction of Vasopressor into Central Vein, Percutaneous Approach (ICD-10-PCS; 2022-08-01)
PROC: 03HY32Z Insertion of Monitoring Device into Upper Artery, Percutaneous Approach (ICD-10-PCS; 2022-08-01)
PROC: 06HY33Z Insertion of Infusion Device into Lower Vein, Percutaneous Approach (ICD-10-PCS; 2022-08-01)
PROC: 5A1D70Z Performance of Urinary Filtration, Intermittent, Less than 6 Hours Per Day (ICD-10-PCS; 2022-08-01)
DX: A41.59 Other Gram-negative sepsis (principal); G93.41 Metabolic encephalopathy; L89.154 Pressure ulcer of sacral region, stage 4; J96.01 Acute respiratory failure with hypoxia; R65.21 Severe sepsis with septic shock; J69.0 Pneumonitis due to inhalation of food and vomit; E87.20 Acidosis, unspecified; N39.0 Urinary tract infection, site not specified; E46 Unspecified protein-calorie malnutrition; M86.18 Other acute osteomyelitis, other site; N17.9 Acute kidney failure, unspecified; Z66 Do not resuscitate; I49.01 Ventricular fibrillation; L89.899 Pressure ulcer of other site, unspecified stage; G40.909 Epilepsy, unspecified, not intractable, without status epilepticus; D69.6 Thrombocytopenia, unspecified; E66.01 Morbid (severe) obesity due to excess calories; F44.4 Conversion disorder with motor symptom or deficit; E87.8 Other disorders of electrolyte and fluid balance, not elsewhere classified; E78.5 Hyperlipidemia, unspecified; N18.30 Chronic kidney disease, stage 3 unspecified; E83.42 Hypomagnesemia; E88.09 Other disorders of plasma-protein metabolism, not elsewhere classified; D63.8 Anemia in other chronic diseases classified elsewhere; Z78.1 Physical restraint status; Z88.8 Allergy status to other drugs, medicaments and biological substances; Z79.899 Other long term (current) drug therapy; Z86.73 Personal history of transient ischemic attack (TIA), and cerebral infarction without residual deficits; Z68.36 Body mass index [BMI] 36.0-36.9, adult
CPT/HCPCS: 31500; 36415; 36416; 36556; 51702; 70450; 71045; 71250; 72125; 74177; 80053; 80202; 80306; 80307; 81003; 81015; 82553; 82805; 83605; 83690; 83735; 83880; 84100; 84145; 84484; 85025; 85610; 85652; 85730; 86140; 86704; 87077; 87086; 87149; 87186; 90935; 93005; 94002; 94003; 96361; 96365; 96366; 96367; 96368; 96375; 96376; 99292; C9113; G0257; J0171; J0611; J0692; J1644; J1720; J1815; J1953; J2060; J2272; J3010; J3370; J3370-JW; J3490; J7050; J7070; J7120; J7999; P9045; P9047; U0002